=== PATIENT | male | born 1975 | race Caucasian/White ===

== ENCOUNTER 2016-06-17 23:18 | Emergency (ER) ==
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
[2016-06-18 00:43] LABS: OCCULT BLOOD 1 NEGATIVE (NEGATIVE)
[2016-06-18 00:44] LABS: URINE CULTURE PL NEEDED? NO; URINE SOURCE CLEAN CATCH
[2016-06-18 01:14] LABS: BILIRUBIN URINE NEGATIVE (NEGATIVE); BLOOD URINE NEGATIVE (NEGATIVE); CLARITY CLEAR (CLEAR); COLOR YELLOW; GLUCOSE URINE NEGATIVE (NEGATIVE); LEUKOCYTES URINE NEGATIVE (NEGATIVE); NITRITE URINE NEGATIVE (NEGATIVE); PROTEIN URINE NEGATIVE (NEGATIVE); UROBILINOGEN URINE NORMAL
[2016-06-18 01:19] LABS: URINE WBC <10 /HPF (<10)
[2016-06-18] MEDS ORDERED: NORCO-7.5 PO ONE (01:19)
[2016-06-18] MEDS ORDERED: ZOFRAN ODT PO ONE (01:19)
[2016-06-18 01:20] LABS: URINE EPITHELIAL CELLS <10 /HPF (<10)
[2016-06-18 01:30] VITALS: BP 149/90
--- NOTE | 2016-06-18 06:36 | Diag Imaging Result Document ---
PROCEDURE NAME: TRAUMA SHOULDER RIGHT - 06/18/2016 RIGHT SHOULDER, 3 VIEWS INCLUDING AN AXILLARY Y-VIEW: FINDINGS: There is slight separation at the acromioclavicular joint. The distal clavicle lies slightly above its normal location. No fracture. No other dislocation. IMPRESSION: Minimal acromioclavicular separation.
--- NOTE | 2016-06-18 06:43 | Diag Imaging Result Document ---
PROCEDURE NAME: HAND COMPLETE RIGHT - 06/18/2016 RIGHT HAND, THREE VIEWS: FINDINGS: No fracture. No dislocation. IMPRESSION: No acute bony injury.
== END 2016-06-18 01:35 | disposition home or self-care (01) ==
LOC: P.ED 23:18
DX: S62.514A Nondisplaced fracture of proximal phalanx of right thumb, initial encounter for closed fracture (principal); S46.911A Strain of unspecified muscle, fascia and tendon at shoulder and upper arm level, right arm, initial encounter; T14.8 Other injury of unspecified body region; Y08.89XA Assault by other specified means, initial encounter; R51 Headache; M25.511 Pain in right shoulder; M79.644 Pain in right finger(s); R10.9 Unspecified abdominal pain; M79.1 Myalgia; E07.9 Disorder of thyroid, unspecified; Z86.14 Personal history of Methicillin resistant Staphylococcus aureus infection
CPT/HCPCS: 36415; 81001; 82270; 99284; G0480; 80320

== ENCOUNTER 2016-07-08 01:08 | Emergency (ER) ==
[2016-07-08 01:29] VITALS: BP 143/76
[2016-07-08] MEDS ORDERED: ROBAXIN PO ONE (02:32)
[2016-07-08] MEDS ORDERED: PERCOCET-10 PO ONE (02:32)
[2016-07-08] MEDS ORDERED: TORADOL IM ONE (02:33)
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
== END 2016-07-08 03:48 | disposition home or self-care (01) ==
LOC: P.ED 01:08
DX: M79.5 Residual foreign body in soft tissue (principal); R20.0 Anesthesia of skin; M79.1 Myalgia; E07.9 Disorder of thyroid, unspecified; Z86.14 Personal history of Methicillin resistant Staphylococcus aureus infection; F17.210 Nicotine dependence, cigarettes, uncomplicated; Z71.6 Tobacco abuse counseling; Z96.659 Presence of unspecified artificial knee joint; Z96.612 Presence of left artificial shoulder joint
CPT/HCPCS: 96372; J1885